=== PATIENT | female | born 1980 ===

== ENCOUNTER 2018-03-30 09:11 | Emergency (ER) | payer BC, MEDICAID ==
[2018-03-30 09:33] VITALS: BP 123/85
--- NOTE | 2018-03-30 09:58 | UC ---
Ryely Coe Angela, scribed for Kathy Hoffmann MD on 03/30/18 at 0953 . General HPI - HPI Summary HPI Summary: This pt is a 38 y/o female presenting to [facility] c/o sore throat that began yesterday. She additionally notes headache, ear ache more L than R, runny nose. Pt took Tylenol at 01:00 today with mild relief. Denies fever, cough, chest pain , SOB. Pt reports sick contact at home, daughter who is 8 y/o with strep throat. Pt has only had water today. NKDA. Denies chance of . Denies hx of yeast infections with antibiotics. Patients medication reviewed this visit. - History of Current Complaint Chief Complaint: UCGeneralIllness Stated Complaint: SORE THROAT,CONGESTED Time Seen by Provider: 03/30/18 09:42 Hx Obtained From: Patient Hx Last Menstrual Period: 03/07/18 Onset/Duration: Lasting Days - 1, Still Present Timing: Constant Pain Intensity: 5 Pain Location at: throat Character: ache Aggravating: nothing Alleviating: nothing Associated Signs & Symptoms: Positive: Headache, Other - POS: sore throat, ear ache, runny nose. Negative: Cough, Chest Pain, Fever, SOB - Allergy/Home Medications Allergies/Adverse Reactions: Allergies Allergy/AdvReac Type Severity Reaction Status Date / Time latex Allergy Swelling Verified 03/30/18 09:25 PMH/Surg Hx/FS Hx/Imm Hx Previously Healthy: Yes Other Endocrine History: DENIES: diabetes Other Cardiovascular History: DENIES: HTN - Surgical History Surgical History: Yes Surgery Procedure, Year, and Place: Appendectomy 1985, c section x 2 - 2008, 2010 - Family History Known Family History: Positive: Diabetes Family History: Cancer - Social History Occupation: Employed Full-time - food services at [employer] Lives: With Family Alcohol Use: None Substance Use Type: None Smoking Status (MU): Never Smoked Tobacco Review of Systems Constitutional: Negative Skin: Negative Eyes: Negative ENT: Sore Throat, Ear Ache, Nasal Discharge Respiratory: Negative Cardiovascular: Negative Gastrointestinal: Negative Genitourinary: Negative Motor: Negative Neurovascular: Negative Musculoskeletal: Negative Neurological: Headache Psychological: Negative Is Patient Immunocompromised?: No All Other Systems Reviewed And Are Negative: Yes Physical Exam Triage Information Reviewed: Yes Appearance: Well-Appearing, No Pain Distress Vital Signs: Initial Vital Signs Temp 98.8 F 03/30/18 09:26 Pulse 96 03/30/18 09:26 Resp 18 03/30/18 09:26 BP 123/85 03/30/18 09:26 Pulse Ox 97 03/30/18 09:26 Vital Signs Reviewed: Yes Eye Exam: Normal Eyes: Positive: Conjunctiva Clear ENT: Positive: Pharynx normal, Other - left TM ++ fluid, buldge erythema right TM mild fluid turbinates inflammed + PND uvula midline no exudate Dental: Positive: Other: Neck exam: Normal Neck: Positive: Supple, Nontender Respiratory Exam: Normal Respiratory: Positive: Chest non-tender, Lungs clear, Normal breath sounds Cardiovascular Exam: Normal Cardiovascular: Positive: RRR, No Murmur Abdominal Exam: Normal Abdomen Description: Positive: Nontender, No Organomegaly, Soft Bowel Sounds: Positive: Present Musculoskeletal Exam: Normal Musculoskeletal: Positive: Strength Intact Neurological Exam: Normal Neurological: Positive: Alert, Muscle Tone Normal Psychological Exam: Normal Psychological: Positive: Normal Response To Family Skin Exam: Normal Course/Dx - Course Course Of Treatment: Pt with sore thrat and ear pain and sore throate. Pt with + strep exposure. Pt with boggy turbinate sin and left OM one maya. abx. decongestant. secretion precaution. hydration. decongenstant - Differential Dx - Multi-Symptom Provider Diagnoses: otitis media. pharyngitis Discharge - Sign-Out/Discharge Documenting (check all that apply): Discharge/Admit/Transfer - Discharge Plan Condition: Stable Disposition: HOME Prescriptions: Amoxicillin PO (*) [Amoxicillin 875 MG (*)] 875 mg PO BID #20 tab Patient Education Materials: Pharyngitis (ED), Ear Infection (ED) Forms: *Work Release Referrals: Dl Elise MD [Primary Care Provider] - Additional Instructions: - Okay to alternate ibuprofen (Advil, Motrin) and Tylenol every 3 hours for pain. Take with food. Do NOT take for more than 4-5 days - Okay to gargle and spit every 4 hours as needed for pain - Stay well hydrated - frequent sips of cold fluids will be soothing to your throat (popsicles, jello, ice cream, ice water). Avoid excess caffeine until your symptoms have resolved. - Do not share eating, drinking utensils. -Throat infections are spread by oral secretions - do not share eating or drinking utensils until you symptoms are resolved. Clean items that may get your secretions such as cell phones, ipads, computer mouse, television remotes - After you have been on antibiotics for 48 hours, change your pillowcase and your toothbrush - Take antibiotics as prescribed until gone. - Contact your doctor to arrange a follow-up appointment as needed - Billing Disposition and Condition Condition: STABLE Disposition: HOME The documentation as recorded by the Ryley maher Angela accurately reflects the service I personally performed and the decisions made by me, Kathy Hoffmann MD.
== END 2018-03-30 10:05 | disposition home or self-care (01) ==
LOC: UCEAST 09:11
DX: J02.9 Acute pharyngitis, unspecified (principal); R51 Headache; H92.03 Otalgia, bilateral; R09.89 Other specified symptoms and signs involving the circulatory and respiratory systems; Z91.040 Latex allergy status
CPT/HCPCS: 99212; G0463

== ENCOUNTER 2018-08-29 20:36 | Emergency (ER) | payer BC ==
--- NOTE | 2018-08-29 20:59 | UC ---
Skin Complaint HPI - HPI Summary HPI Summary: 38 yo female presents with ?tick bite to left neck. Pt's daughter noticed a black spot to pt's left neck and pulled at it. She thinks it was a tick, but did not bring it with her today. Unsure how long it was attached or if it was engorged. Pt says she has not been outdoors very often or in wooded environments. - History of Current Complaint Time Seen by Provider: 08/29/18 20:58 Stated Complaint: TICK BITE Hx Obtained From: Patient Hx Last Menstrual Period: 03/07/18 Onset/Duration: Sudden Onset Onset Severity: Mild Current Severity: Mild Pain Intensity: 2 Pain Scale Used: 0-10 Numeric - Allergy/Home Medications Allergies/Adverse Reactions: Allergies Allergy/AdvReac Type Severity Reaction Status Date / Time capsaicin Allergy Anaphylatic Verified 08/29/18 20:59 Shock latex Allergy Swelling Verified 08/29/18 20:59 Home Medications: Home Medications NK [No Home Medications Reported] 08/29/18 [History Confirmed 08/29/18] Review of Systems Constitutional: Negative Skin: Other - ?tick bite left neck Respiratory: Negative Cardiovascular: Negative Neurovascular: Negative Neurological: Negative Psychological: Negative All Other Systems Reviewed And Are Negative: Yes PMH/Surg Hx/FS Hx/Imm Hx - Additional Past Medical History Additional PMH: None - Surgical History Surgical History: Yes Surgery Procedure, Year, and Place: Appendectomy 1985, c section x 2 - 2008, 2010 - Family History Known Family History: Positive: Diabetes Family History: Cancer - Social History Occupation: Employed Full-time Lives: With Family Alcohol Use: None Substance Use Type: None Smoking Status (MU): Never Smoked Tobacco Physical Exam - Summary Physical Exam Summary: GENERAL: NAD. WDWN. No pain distress. SKIN: Left neck: there is a 3mm diameter of mild erythema with central 1mm area of superficial skin loss. No streaking, bleeding, or drainage. NECK: Supple. Nontender. No lymphadenopathy. CHEST: No accessory muscle use. Breathing comfortably and in no distress. CV: Pulses intact. Cap refill <2seconds NEURO: Alert. PSYCH: Age appropriate behavior. Triage Information Reviewed: Yes Vital Signs: Vital Signs: Temp Pulse Resp BP Pulse Ox 99.2 F 80 18 110/73 100 08/29/18 20:57 08/29/18 20:57 08/29/18 20:57 08/29/18 20:57 08/29/18 20:57 Vital Signs Reviewed: Yes Course/Dx - Course Course Of Treatment: This could have been a tick bite. Pt elected to have prophylactic doxycycline for lyme disease. She was given 200mg doxycycline in the clinic and advised to monitor for signs of lyme disease - Diagnoses Provider Diagnoses: Tick bite left neck Discharge - Sign-Out/Discharge Documenting (check all that apply): Patient Departure All imaging exams completed and their final reports reviewed: No Studies - Discharge Plan Condition: Stable Disposition: HOME Patient Education Materials: Lyme Disease (ED), Tick Bite (ED) Referrals: Dl Elise MD [Primary Care Provider] - Additional Instructions: If you develop a fever, shortness of breath, chest pain, new or worsening symptoms - please call your PCP or go to the ED. TICK BITE: You have been bitten by a tick. Once the tick is removed, these "bites" usually cause no problems. Tick fever, tick paralysis, [place] Spotted fever, and Lyme disease are uncommon -- but you should mention this tick bite to your doctor if you develop unusual symptoms in the next several weeks. If you develop any of the following, please see your physician promptly: (1) Fever, chills, or generalized malaise associated with a headache. (2) A red round area at the site of the bite (or elsewhere) (3) Joint pain, joint swelling or generalized weakness. (4) Redness, swelling, or drainage at the site of the bite. - Billing Disposition and Condition Condition: STABLE Disposition: Home - Attestation Statements Provider Attestation: Per institutional requirements, I have reviewed the chart, however, I was not consulted specifically or made aware of this patient by the midlevel provider. I did not personally evaluate, interact with , or disposition this patient.
[2018-08-29 21:05] VITALS: BP 110/73
[2018-08-29] MEDS ORDERED: DOXYcycline CAP(*) 100 MG PO ONE (21:11)
== END 2018-08-29 21:20 | disposition home or self-care (01) ==
LOC: UCEAST 20:36
DX: S10.96XA Insect bite of unspecified part of neck, initial encounter (principal); Z88.8 Allergy status to other drugs, medicaments and biological substances; Z91.040 Latex allergy status
CPT/HCPCS: 99212; A9270-GY; G0463

== ENCOUNTER 2019-01-19 11:43 | Emergency (ER) | payer BC, OTHER ==
--- NOTE | 2019-01-19 11:52 | UC ---
HPI Febrile Illness - HPI Summary HPI Summary: patient complaining of headache, sore thraot, ear pain and eye pressure for the last week, now has fever on and off. - History of Current Complaint Time Seen by Provider: 01/19/19 11:47 Hx Obtained From: Patient Billie Last Menstrual Period: 03/07/18 Timing: Constant, Lasting Days Initial Severity: Moderate Pain Intensity: 5 Aggravating Factors: Nothing Alleviating Factors: Nothing Associated Signs and Symptoms: Chills, Cough, Headache, Sore Throat - Allergy/Home Medications Allergies/Adverse Reactions: Allergies Allergy/AdvReac Type Severity Reaction Status Date / Time capsaicin Allergy Anaphylatic Verified 08/29/18 20:59 Shock latex Allergy Swelling Verified 08/29/18 20:59 PMH/Surg Hx/FS Hx/Imm Hx Previously Healthy: Yes - Surgical History Surgical History: Yes Surgery Procedure, Year, and Place: Appendectomy 1985, c section x 2 - 2008, 2010 - Family History Known Family History: Positive: Diabetes Family History: Cancer - Social History Alcohol Use: None Substance Use Type: None Smoking Status (MU): Never Smoked Tobacco - Immunization History Most Recent Tetanus Shot: unsure Review of Systems All Other Systems Reviewed And Are Negative: Yes Constitutional: Positive: Fever, Chills, Fatigue Skin: Positive: Negative Eyes: Positive: Negative ENT: Positive: Sore Throat, Ear Ache, Nasal Discharge, Sinus Congestion, Sinus Pain/Tenderness Respiratory: Positive: Cough Cardiovascular: Positive: Negative Gastrointestinal: Positive: Negative Genitourinary: Positive: Negative Motor: Positive: Negative Neurovascular: Positive: Negative Musculoskeletal: Positive: Negative Neurological: Positive: Headache Psychological: Positive: Negative Is Patient Immunocompromised?: No Physical Exam Triage Information Reviewed: Yes Appearance: Ill-Appearing, Pain Distress, Obese Vital Signs Reviewed: Yes Eye Exam: Normal ENT: Positive: Pharyngeal erythema, Nasal congestion, Nasal drainage, TM bulging , TM dull, Tonsillar swelling, Sinus tenderness Dental Exam: Normal Neck exam: Normal Respiratory Exam: Normal Respiratory: Positive: Chest non-tender, Lungs clear, Normal breath sounds Cardiovascular Exam: Normal Cardiovascular: Positive: RRR, No Murmur, Pulses Normal Abdominal Exam: Normal Musculoskeletal Exam: Normal Neurological Exam: Normal Psychological Exam: Normal Skin Exam: Normal Course/Dx - Course Course Of Treatment: hx obtained, exam performed ,meds reviewed, treated for rhinosinusitis - Febrile Illness Differential Diagnoses: Bacteremia, Other: - influenza - Diagnoses Provider Diagnosis: Acute rhinosinusitis Discharge - Sign-Out/Discharge Documenting (check all that apply): Patient Departure All imaging exams completed and their final reports reviewed: No Studies - Discharge Plan Condition: Stable Disposition: HOME Prescriptions: Azithromyxin EVELIA (NF) [Z-Evelia (Zithromax) 250 mg tabs #6] 2 tab PO .TODAY, THEN 1 DAILY #6 tab Fluticasone NASAL SPRAY 50MCG* [Flonase NASAL SPRAY 50MCG*] 2 spray BOTH NARES DAILY #1 btl Patient Education Materials: Rhinosinusitis (ED) Referrals: Dl Elise MD [Primary Care Provider] - Additional Instructions: 1. take the medication as prescribed. 2. Get plenty of rest 3. Increase fluid intake 4. Follow up if not improving in 7- 10 days - Billing Disposition and Condition Condition: STABLE Disposition: Home
[2019-01-19 11:55] VITALS: BP 120/76
[2019-01-19 12:05] LABS: Influenza A Molecular NEGATIVE (Negative); Influenza B Molecular NEGATIVE (Negative)
== END 2019-01-19 12:19 | disposition home or self-care (01) ==
LOC: UCEAST 11:43
DX: J01.90 Acute sinusitis, unspecified (principal); Z91.040 Latex allergy status; Z91.018 Allergy to other foods
CPT/HCPCS: 99212; G0463

== ENCOUNTER 2019-09-03 10:57 | Emergency (ER) | payer BC, OTHER ==
[2019-09-03 11:17] VITALS: BP 120/74
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
== END 2019-09-03 12:58 | disposition home or self-care (01) ==
LOC: UCEAST 10:57
DX: S83.8X2A Sprain of other specified parts of left knee, initial encounter (principal); E66.9 Obesity, unspecified; Z91.018 Allergy to other foods; Z91.040 Latex allergy status; Z87.891 Personal history of nicotine dependence; V89.2XXA Person injured in unspecified motor-vehicle accident, traffic, initial encounter; Y92.9 Unspecified place or not applicable
CPT/HCPCS: 99213; G0463